=== PATIENT | female | born 1990 | race African-American/Black ===

== ENCOUNTER 2017-03-15 10:22 | Emergency (ER) | payer OTHER ==
[2017-03-15 11:09] LABS: Pregnancy Test - Urine (BHCG) Negative (Negative); Pregu Control Background? CLEAR/WHITE (CLR/WHITE); Pregu Control Bar Appear? YES (CONTROL BAR)
[2017-03-15 11:14] LABS: Bilirubin Negative (Negative); Blood, Urine Large (Negative); Glucose, Urine (Dipstick) Negative (Negative); Icto Negative (Negative); Leukocyte Negative (Negative); Nitrite Negative (Negative); Protein, Urine (Dipstick) Negative (Neg-Trace); pH, Urine 8.5 (5.0-9.0)
[2017-03-15 11:15] LABS: Bacteria/HPF Rare-Few HPF (None Seen); Clarity Cloudy (Clear); RBC/HPF GREATER THAN 50-TNTC HPF (0-3); Squamous Epithelial 0-3 HPF (0-3); WBC/HPF 0-3 HPF (0-3)
== END 2017-03-15 12:13 | disposition home or self-care (01) ==
LOC: MADERS 10:22
DX: N93.8 Other specified abnormal uterine and vaginal bleeding (principal)
CPT/HCPCS: 81003; 81015; 81025; 99284

== ENCOUNTER 2017-09-08 22:48 | Emergency (ER) | payer OTHER, SELFPAY ==
[2017-09-08] MEDS ORDERED: Naproxen 500 MG TAB ONE (23:20)
[2017-09-08] MEDS ORDERED: Benzonatate 100 MG CAP ONE (23:20)
[2017-09-08] MEDS ORDERED: AMOXicillin 250 MG CAP ONE (23:20)
== END 2017-09-08 23:35 | disposition home or self-care (01) ==
LOC: MADERS 22:48
DX: J02.9 Acute pharyngitis, unspecified (principal)
CPT/HCPCS: 87081; 87430; 99283

== ENCOUNTER 2017-11-07 00:09 | Emergency (ER) | payer SELFPAY | END 2017-11-07 00:25 | disposition home or self-care (01) | LOC: MADERS 00:09 | DX: S40.871A Other superficial bite of right upper arm, initial encounter (principal); W50.3XXA Accidental bite by another person, initial encounter | CPT/HCPCS: 99283 ==

== ENCOUNTER 2019-01-20 17:55 | Emergency (ER) | payer BC | END 2019-01-20 18:58 | disposition home or self-care (01) | LOC: MADERS 17:55 | DX: G43.909 Migraine, unspecified, not intractable, without status migrainosus (principal) | CPT/HCPCS: 99283 ==

== ENCOUNTER 2019-04-05 04:55 | Emergency (ER) | payer BC, SELFPAY ==
[2019-04-05] MEDS ORDERED: AMOXicillin 250 MG CAP ONE (05:20)
[2019-04-05] MEDS ORDERED: Ketorolac Tromethamine 60 MG/2 ML VIAL ONE (05:20)
== END 2019-04-05 05:38 | disposition home or self-care (01) ==
LOC: MADERS 04:55
DX: K02.9 Dental caries, unspecified (principal); K03.81 Cracked tooth
CPT/HCPCS: 96372; 99282; J1885

== ENCOUNTER 2019-06-16 00:52 | Emergency (ER) | payer SELFPAY ==
[2019-06-16 01:12] LABS: Bilirubin Negative (Negative); Blood, Urine Negative (Negative); Clarity Clear (Clear); Glucose, Urine (Dipstick) Negative (Negative); Leukocyte Trace (Negative); Nitrite Negative (Negative); Protein, Urine (Dipstick) Negative (Neg-Trace); Urobilinogen 0.2 mg/dL (Less than 2)
[2019-06-16 01:16] LABS: Pregnancy Test - Urine (BHCG) Negative (Negative); Pregu Control Background? CLEAR/WHITE (CLR/WHITE); Pregu Control Bar Appear? YES (CONTROL BAR); Specific Gravity 1.006 (1.002-1.036)
[2019-06-16 01:19] LABS: Bacteria/HPF Rare-Few HPF (None Seen); RBC/HPF 0-3 HPF (0-3); Squamous Epithelial 0-3 HPF (0-3); WBC/HPF 0-3 HPF (0-3)
== END 2019-06-16 01:25 | disposition left against medical advice (07) ==
LOC: MADERS 00:52
DX: R51 Headache (principal)
CPT/HCPCS: 81003; 81015; 81025; 99284

== ENCOUNTER 2021-11-19 01:16 | Emergency (ER) | payer OTHER, SELFPAY ==
[2021-11-19 02:32] LABS: Bilirubin Negative (Negative); Blood, Urine Negative (Negative); Clarity Clear (Clear); Glucose, Urine (Dipstick) Negative (Negative); Ketone, Urine Negative (Negative); Leukocyte Negative (Negative); Nitrite Negative (Negative); Protein, Urine (Dipstick) Negative (Neg-Trace); Specific Gravity, Urine 1.025 (1.005-1.030)
[2021-11-19 02:37] LABS: #Basophils 0.1 thou/uL (0.0-0.2); #Eosinphils 0.1 thou/uL (0.0-0.7); #Lymphocytes 2.3 thou/uL (1.20-3.40); #Monocytes 0.6 thou/uL (0.11-0.59); #Neutrophils 3.3 thou/uL (1.40-6.50); %Basophils 1.9 % (0.0-1.0); %Eosinophils 1.1 % (0.0-10.0); %Lymphocytes 36.3 % (21.0-51.0); %Neutrophils 50.7 % (42.0-75.0); Anisocytosis SLIGHT = 6-15 cells (100X) (0-5/hpf); Burr Cells SLIGHT = 2-5 cells (100X) (0-1/hpf); Hemoglobin 10.5 g/dL (12.0-16.0); MDiff Complete? YES; Mean Corpuscular HGB CONC 30.8 g/dL (32.0-36.0); Mean Corpuscular Hemoglobin 22.1 pg (27.0-31.0); Mean Corpuscular Volume 71.7 fL (78.0-98.0); Mean Platelet Volume 9.3 fL (7.4-10.4); Ovalocytes SLIGHT = 2-5 cells (100X) (0-1/hpf); Platelet Count 228 thou/uL (130-400); Platelet Morphology Comment Appears Adequate; RBC Distribution Width 15.7 % (11.5-14.5); Red Blood Cell (RBC) Count 4.77 mill/uL (4.20-5.40); White Blood Cell (WBC) Count 6.4 thou/uL (4.8-10.8)
[2021-11-19 02:42] LABS: ALT (SGPT) 10 U/L (8-55); AST (SGOT) 15 U/L (5-34); Albumin 3.4 g/dL (3.5-5.0); Alkaline Phosphatase 49 U/L (40-110); Anion Gap 15 mmol/L (10-20); BUN (Urea Nitrogen) 7 mg/dL (7.0-18.7); Bilirubin, Total 0.3 mg/dL (0.2-1.2); Calc. Creatinine Clearance 0 mL/min (70-130); Carbon Dioxide 17 mmol/L (22-29); Chloride 107 mmol/L (98-107); Globulin 3.7 g/dL (2.4-3.5); Glucose 84 mg/dL (70-105); Potassium 3.9 mmol/L (3.5-5.1); Protein, Total 7.1 g/dL (6.0-8.3); Sodium 135 mmol/L (136-145)
[2021-11-19 18:26] LABS: Chlamydia by PCR Not Detected (NotDetected); GC by PCR Not Detected (NotDetected)
== END 2021-11-19 03:30 | disposition short-term general hospital (02) ==
LOC: MADERS 01:16
DX: O99.891 Other specified diseases and conditions complicating pregnancy (principal); R10.2 Pelvic and perineal pain; O99.282 Endocrine, nutritional and metabolic diseases complicating pregnancy, second trimester; E86.0 Dehydration; O99.012 Anemia complicating pregnancy, second trimester; D50.9 Iron deficiency anemia, unspecified; Z3A.14 14 weeks gestation of pregnancy
CPT/HCPCS: 36415; 80053; 81003; 85025; 86900; 86901; 87480; 87491; 87510; 87591; 87660; 99284

== ENCOUNTER 2022-02-23 07:25 | Emergency (ER) | payer OTHER ==
[~2022-02-23 07:25] MED LIST: Sodium Chloride 0.9% 1,000 ML BAG ONE
== END 2022-02-23 08:25 | disposition home or self-care (01) ==
LOC: MADERS 07:25
DX: O60.03 Preterm labor without delivery, third trimester (principal); O23.593 Infection of other part of genital tract in pregnancy, third trimester; Z3A.29 29 weeks gestation of pregnancy
CPT/HCPCS: 99284; J7050

== ENCOUNTER 2022-04-21 10:34 | Emergency (ER) | payer BC, OTHER ==
[2022-04-21 11:23] LABS: ALT (SGPT) 8 U/L (8-55); AST (SGOT) 13 U/L (5-34); Albumin 3.3 g/dL (3.5-5.0); Alkaline Phosphatase 113 U/L (40-110); Anion Gap 13 mmol/L (10-20); BUN (Urea Nitrogen) 8 mg/dL (7.0-18.7); Bilirubin, Total 0.3 mg/dL (0.2-1.2); Calc. Creatinine Clearance 0 mL/min (70-130); Carbon Dioxide 21 mmol/L (22-29); Chloride 108 mmol/L (98-107); Estimated GFR 120; Globulin 3.5 g/dL (2.4-3.5); Glucose 88 mg/dL (70-105); Potassium 3.7 mmol/L (3.5-5.1); Protein, Total 6.8 g/dL (6.0-8.3); Sodium 138 mmol/L (136-145)
[2022-04-21 11:36] LABS: #Basophils 0.1 thou/uL (0.0-0.2); #Lymphocytes 1.6 thou/uL (1.20-3.40); #Monocytes 0.5 thou/uL (0.11-0.59); #Neutrophils 3.6 thou/uL (1.40-6.50); %Basophils 1.3 % (0.0-1.0); %Eosinophils 0.2 % (0.0-10.0); %Monocytes 8.3 % (0.0-10.0); %Neutrophils 62.2 % (42.0-75.0); Anisocytosis SLIGHT = 6-15 cells (100X) (0-5/hpf); Hemoglobin 9.4 g/dL (12.0-16.0); Hypochromia SLIGHT = 6-15 cells (100X) (0-5/hpf); MDiff Complete? YES; Mean Corpuscular HGB CONC 30.6 g/dL (32.0-36.0); Mean Corpuscular Hemoglobin 24.1 pg (27.0-31.0); Mean Corpuscular Volume 78.9 fL (78.0-98.0); Mean Platelet Volume 16.9 fL (7.4-10.4); Microcytosis SLIGHT = 6-15 cells (100X) (0-5/hpf); Platelet Count 97 thou/uL (130-400); Platelet Morphology Comment Appears Decreased; RBC Distribution Width 17.5 % (11.5-14.5); Red Blood Cell (RBC) Count 3.91 mill/uL (4.20-5.40); White Blood Cell (WBC) Count 5.8 thou/uL (4.8-10.8)
[2022-04-21 12:14] LABS: Bilirubin Negative (Negative); Blood, Urine Negative (Negative); Clarity Clear (Clear); Glucose, Urine (Dipstick) Negative (Negative); Ketone, Urine Negative (Negative); Leukocyte Negative (Negative); Nitrite Negative (Negative); Protein, Urine (Dipstick) Negative (Neg-Trace); Urobilinogen 0.2 mg/dL (Less than 2)
[2022-04-21] MEDS ORDERED: Acetaminophen 500 MG TAB ONE (12:56)
== END 2022-04-21 13:10 | disposition short-term general hospital (02) ==
LOC: MADERS 10:34
DX: O99.353 Diseases of the nervous system complicating pregnancy, third trimester (principal); R29.810 Facial weakness; R29.700 NIHSS score 0; O99.891 Other specified diseases and conditions complicating pregnancy; R51.9 Headache, unspecified; Z3A.36 36 weeks gestation of pregnancy
CPT/HCPCS: 36416; 70450; 80053; 81003; 85025; 93005

== ENCOUNTER 2022-07-07 17:14 | Emergency (ER) | payer OTHER | END 2022-07-07 18:50 | disposition left against medical advice (07) | LOC: MADERS 17:14 | DX: Z53.21 Procedure and treatment not carried out due to patient leaving prior to being seen by health care provider (principal) ==

== ENCOUNTER 2022-07-12 16:02 | Emergency (ER) | payer MEDICAID, OTHER ==
[2022-07-12] MEDS ORDERED: Sulfameth/Trimethoprim DS 800-160mg TAB ONE (17:16)
[2022-07-12] MEDS ORDERED: Cephalexin 500 MG CAP ONE (17:16)
== END 2022-07-12 17:23 | disposition home or self-care (01) ==
LOC: MADERS 16:02
DX: L03.116 Cellulitis of left lower limb (principal); L03.115 Cellulitis of right lower limb
CPT/HCPCS: 99283

== ENCOUNTER 2022-09-09 13:03 | Emergency (ER) | payer OTHER ==
[2022-09-09] MEDS ORDERED: Promethazine 25 MG TAB ONE (13:32)
[2022-09-09] MEDS ORDERED: Dexamethasone 10 MG/ML VIAL ONE (13:32)
== END 2022-09-09 14:13 | disposition home or self-care (01) ==
LOC: MADERS 13:03
DX: J02.0 Streptococcal pharyngitis (principal)
CPT/HCPCS: 87430; 87804; 96372; 99283; J1100; Q0169

== ENCOUNTER 2024-06-01 20:17 | Emergency (ER) | payer OTHER, SELFPAY ==
[2024-06-01 21:07] LABS: Pregnancy Test - Urine (BHCG) Negative (Negative); Pregu Control Background? CLEAR/WHITE (CLR/WHITE); Pregu Control Bar Appear? YES (CONTROL BAR); Specific Gravity 1.025 (1.002-1.036)
[2024-06-01] MEDS ORDERED: diphenhydrAMINE 50 MG/ML VIAL ONE (21:15)
[2024-06-01] MEDS ORDERED: Lactated Ringer's 1,000 ML ONE (21:16)
[2024-06-01] MEDS ORDERED: Ketorolac Tromethamine 30 MG (1 mL) VIAL ONE (21:16)
[2024-06-01] MEDS ORDERED: Prochlorperazine 10 MG/2 ML VIAL ONE (21:16)
[2024-06-01 21:27] LABS: #Basophils 0.1 thou/uL (0.0-0.2); #Eosinphils 0.1 thou/uL (0.0-0.7); #Lymphocytes 1.9 thou/uL (1.20-3.40); #Monocytes 0.3 thou/uL (0.11-0.59); #Neutrophils 1.9 thou/uL (1.40-6.50); %Basophils 1.6 % (0.0-1.0); %Eosinophils 1.4 % (0.0-10.0); %Lymphocytes 43.8 % (21.0-51.0); %Monocytes 7.9 % (0.0-10.0); %Neutrophils 45.4 % (42.0-75.0); Hematocrit 31.9 % (36.0-47.0); Hemoglobin 9.8 g/dL (12.0-16.0); Hypochromia SLIGHT = 6-15 cells (100X) (0-5/hpf); MDiff Complete? YES; Mean Corpuscular HGB CONC 30.8 g/dL (32.0-36.0); Mean Corpuscular Volume 74.9 fl (78.0-98.0); Mean Platelet Volume 11.9 fL (7.4-10.4); Microcytosis SLIGHT = 6-15 cells (100X) (0-5/hpf); Platelet Count 198 10x3/uL (130-400); RBC Distribution Width 16.7 % (11.5-14.5); Red Blood Cell (RBC) Count 4.26 mill/uL (4.20-5.40); White Blood Cell (WBC) Count 4.2 10x3/uL (4.8-10.8)
[2024-06-01 21:36] LABS: ALT (SGPT) 10 U/L (8-55); AST (SGOT) 14 U/L (5-34); Albumin 3.6 g/dL (3.5-5.0); Alkaline Phosphatase 63 U/L (40-110); Anion Gap 14 mmol/L (10-20); BUN (Urea Nitrogen) 18 mg/dL (7.0-18.7); Bilirubin, Total 0.2 mg/dL (0.2-1.2); Calc. Creatinine Clearance 0 mL/min (70-130); Calcium 8.4 mg/dL (7.8-10.44); Carbon Dioxide 22 mmol/L (22-29); Chloride 107 mmol/L (98-107); Estimated GFR 99; Globulin 3.7 g/dL (2.4-3.5); Glucose 98 mg/dL (70-105); Potassium 3.8 mmol/L (3.5-5.1); Protein, Total 7.3 g/dL (6.0-8.3); Sodium 139 mmol/L (136-145)
== END 2024-06-01 21:50 | disposition home or self-care (01) ==
LOC: MADERS 20:17
DX: R51.9 Headache, unspecified (principal); M54.2 Cervicalgia; D50.9 Iron deficiency anemia, unspecified
CPT/HCPCS: 80053; 81025; 85025; 94760; 96374; 96375; J0780; J1200; J1885; J7120